=== PATIENT | male | born 1975 | race Caucasian/White ===

== ENCOUNTER 2017-06-25 16:56 | Inpatient (IN) | payer BC ==
--- NOTE | 2017-06-25 17:40 | HP ---
CIWA Score - CIWA Score Nausea/Vomitin Muscle Tremors: 3 Anxiety: 3 Agitation: 3 Paroxysmal Sweats: 3 Orientation: 0-Oriented Tacttile Disturbances: 2-Mild Itch/Numbness/Burn Auditory Disturbances: 2-Mild Harshness/Frighten Visual Disturbances: 2-Mild Sensitivity Headache: 2-Mild CIWA-Ar Total Score: 23 Admission ROS BHS - HPI Chief Complaint: i need help to stop drinking alcohol and drug heroin,cocaine and xanax Allergies/Adverse Reactions: Allergies Allergy/AdvReac Type Severity Reaction Status Date / Time No Known Allergies Allergy Verified 08/23/15 16:16 History of Present Illness: this 42 years old male with alcohol dependence,also using heroin,cocaine and xanax,seeking detox,last treatment [place] in 2014 seizure drug related last 10 years ago nicotine dependence mmtp 80 mgs/day,last medicated today longest period of sobriety 4 and half year Exam Limitations: No Limitations - Ebola screening Have you traveled outside of the country in the last 21 days: No Have you had contact with anyone from an Ebola affected area: No Do you have a fever: No - Review of Systems Constitutional: Diaphoresis, Loss of Appetite, Night Sweats, Changes in sleep, Unintentional Wgt. Loss EENT: reports: Tearing, Nose Congestion Respiratory: reports: No Symptoms reported Cardiac: reports: Palpitations GI: reports: Diarrhea, Nausea, Vomiting, Abdominal cramping : reports: No Symptoms Reported Musculoskeletal: reports: Back Pain, Joint Pain, Muscle Pain, Neck Pain Integumentary: reports: Dryness Neuro: reports: No Symptoms reported, Headache, Tremors Endocrine: reports: No Symptoms Reported Hematology: reports: No Symptoms Reported Psychiatric: reports: No Sypmtoms Reported, Judgement Intact, Mood/Affect Appropiate, Orientated x3 Other Systems: Reviewed and Negative Patient History - Patient Medical History Hx Anemia: No Hx Asthma: No Hx Chronic Obstructive Pulmonary Disease (COPD): No Hx Cancer: No Hx Cardiac Disorders: No Hx Congestive Heart Failure: No Hx Hypertension: No Hx Hypercholesterolemia: No Hx Pacemaker: No HX Cerebrovascular Accident: No Hx Seizures: Yes (last 2004) Hx Dementia: No Hx Diabetes: No Hx Gastrointestinal Disorders: No Hx Liver Disease: No Hx Genitourinary Disorders: No Hx Sexually Transmitted Disorders: No Hx Renal Disease (ESRD): No Hx Thyroid Disease: No Hx Human Immunodeficiency Virus (HIV): No (last 03/14 negative) Hx Hepatitis C: No Hx Depression: Yes (no med) Hx Suicide Attempt: No Hx Bipolar Disorder: No Hx Schizophrenia: No Other Medical History: no suicidal,no homicidal - Patient Surgical History Past Surgical History: No - PPD History Previous Implant?: Yes Documented Results: Negative w/o proof Date: 08/25/15 PPD to be Administered?: Yes - Smoking Cessation Smoking history: Current every day smoker Have you smoked in the past 12 months: Yes Aproximately how many cigarettes per day: 10 If you are a former smoker, when did you quit?: 10 Cigars Per Day: 0 Hx Chewing Tobacco Use: No Initiated information on smoking cessation: Yes 'Breaking Loose' booklet given: 06/25/17 - Substance & Tx. History Hx Alcohol Use: Yes Hx Substance Use: Yes Substance Use Type: Alcohol, Cocaine, Opiates, Tranquilizers Hx Substance Use Treatment: Yes ([facility] 2014) - Substances Abused Alcohol Route: Oral Frequency: Daily Amount used: 2pints of vodka and gin/2 of 6 packs of 12 ozs of beer Age of first use: 13 Date of Last Use: 06/25/17 Alprazolam (Xanax) Route: Oral Frequency: Daily Amount used: 4mgs Age of first use: 24 Date of Last Use: 06/24/17 Cocaine Route: Injection Frequency: Daily Amount used: 20$ Age of first use: 22 Date of Last Use: 06/25/17 Heroin Route: Injection Frequency: Daily Amount used: 6 bags Age of first use: 24 Date of Last Use: 06/25/17 Family Disease History - Family Disease History Family Disease History: Other: Mother (alcohol) Admission Physical Exam [facility] - Physical General Appearance: Yes: Moderate Distress, Tremorous, Irritable, Sweating, Anxious HEENTM: Yes: Normal ENT Inspection, QUITA, Pharynx Normal Respiratory: Yes: Lungs Clear, Normal Breath Sounds, No Respiratory Distress Neck: Yes: Within Normal Limits, Supple, Trachea in good position Breast: Yes: Within Normal Limits Cardiology: Yes: Within Normal Limits, Regular Rhythm, Regular Rate, S1, S2 Abdominal: Yes: Within Normal Limits, Normal Bowel Sounds, Non Tender, Soft Genitourinary: Yes: Within Normal Limits Back: Yes: Muscle Spasm Musculoskeletal: Yes: full range of Motion, Back pain, Muscle Pain Extremities: Yes: Within Normal Limits, Normal Range of Motion, Tremors 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: 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: 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, Alert, Motor Strength 5/5 Integumentary: Yes: Dry, Track Crocker, Other (cellulitis both forearms) Lymphatic: Yes: Within Normal Limits - Diagnostic (1) Alcohol dependence with uncomplicated intoxication Current Visit: No Status: Acute (2) Depression Current Visit: No Status: Acute (3) Nicotine dependence Current Visit: No Status: Chronic Qualifiers: Nicotine product type: cigarettes Substance use status: uncomplicated Qualified Code(s): F17.210 - Nicotine dependence, cigarettes, uncomplicated ; F17.210 - Nicotine dependence, cigarettes, uncomplicated (4) Seizure Current Visit: No Status: Chronic (5) Methadone maintenance therapy patient Current Visit: Yes Status: Acute (6) Weight loss Current Visit: Yes Status: Acute (7) Cellulitis Current Visit: Yes Status: Acute (8) Uncomplicated sedative, hypnotic or anxiolytic withdrawal Current Visit: Yes Status: Acute (9) Cocaine dependence Current Visit: Yes Status: Acute (10) Opioid dependence with withdrawal Current Visit: No Status: Acute Cleared for Admission BHS - Detox or Rehab S Level of Care: Medically Managed Detox Regimen/Protocol: Valium BHS Breath Alcohol Content Breath Alcohol Content: 0
[2017-06-25 18:16] VITALS: BMI 20.9
[2017-06-25] MEDS ORDERED: IBUPROFEN 400 MG TABLET (FP) PO PRN (18:17)
[2017-06-25] MEDS ORDERED: ACETAMINOPHEN 325 MG TABLET (FP) PO PRN (18:17)
[2017-06-25] MEDS ORDERED: MAGNESIUM CITRATE 300 ML BOTTLE PO PRN (18:17)
[2017-06-25] MEDS ORDERED: MAGNESIUM HYDROX 2400MG/30ML ORAL SUSPENSION 30 ML CUP PO PRN (18:17)
[2017-06-25] MEDS ORDERED: diphenhydrAMINE HCL 50 MG CAPSULE PO PRN (18:17)
[2017-06-25] MEDS ORDERED: MENTHOL/PHENOL 1 EACH UD MM PRN (18:17)
[2017-06-25] MEDS ORDERED: P-EPHED 60MG/TRIPROLIDI 2.5MG TABLET PO PRN (18:17)
[2017-06-25] MEDS ORDERED: diazePAM 5 MG TABLET PO ONE ×2 (18:17→21:15)
[2017-06-25] MEDS ORDERED: hydrOXYzine PAMOATE 25 MG CAPSULE (FP) PO PRN (18:17)
[2017-06-25] MEDS ORDERED: MAG HYDROX/AL HYDROX/SIMETH 30 ML UNIT-DOSE CUP PO PRN (18:17)
[2017-06-25] MEDS ORDERED: guaiFENesin/D-METHORPHAN HB 10 ML UNIT-DOSE CUPS PO PRN (18:17)
[2017-06-25] MEDS ORDERED: LOPERAMIDE HCL 2 MG CAPSULE PO PRN (18:17)
--- NOTE | 2017-06-25 18:23 | PN ---
[facility] Progress Note Note: addendum patient has bottle of methadone 80 mgs po for 06/26/17 with him
[2017-06-25] MEDS: NICOTINE 14 MG/24 HOURS TOPICAL PATCH TD SCH (21:33)
[2017-06-25] MEDS: THIAMINE HCL 100 MG TABLET (FP) PO SCH (23:03)
[2017-06-25] MEDS: CEPHALEXIN MONOHYDRATE 500 MG CAPSULE (UD) PO SCH (23:03)
[2017-06-25] MEDS: diazePAM 5 MG TABLET PO SCH (23:04)
[2017-06-26 01:02] LABS: URINE APPEARANCE SLCLOUDY; URINE BLOOD NEGATIVE (NEGATIVE); URINE COLOR AMBER; URINE GLUCOSE (UA) NEGATIVE (NEGATIVE); URINE KETONE TRACE (NEGATIVE); URINE NITRITE NEGATIVE (NEGATIVE); URINE PROTEIN NEGATIVE (NEGATIVE)
[2017-06-26] MEDS ORDERED: LEVOTHYROXINE NA 25 MCG TABLET (FP) ONE (05:29)
[2017-06-26] MEDS ORDERED: LEVOTHYROXINE NA 100 MCG TABLET (FP) ONE (05:30)
[2017-06-26] MEDS: diazePAM 5 MG TABLET PO SCH ×3 (05:52→22:05)
[2017-06-26] MEDS: CEPHALEXIN MONOHYDRATE 500 MG CAPSULE (UD) PO SCH ×4 (05:53→23:03)
[2017-06-26] MEDS ORDERED: METHADONE HCL 40 MG DISPERSABLE TABLET PO ONE (06:00)
[2017-06-26] MEDS ORDERED: LEVOTHYROXINE NA 125 MCG TABLET (FP) PO SCH (07:00)
[2017-06-26] MEDS: LEVOTHYROXINE 100 MCG, LEVOTHYROXINE 25 MCG PO SCH (07:43)
--- NOTE | 2017-06-26 09:10 | CONSULT ---
[facility] Psychiatric Consult - Data Date of interview: 06/26/17 Admission source: Self-referred due to court mandation Identifying data: Mr Sheffield is a 42 years old [place] male, unemployed , domiciled living with his ex girlfriend seeking detox treatment for alcohol, heroin, cocaine and xanax Substance Abuse History: Reports history of alcohol, heroin cocaine and xanax use. Refer to addiction counselor's note for further information Medical History: Significant for hypothyroidism, cellulitis both arm on antibiotics and alcohol-related seizure. Patient is on methadone 80 mg/day( att[facility]). Smokes 10 cigarettes daily Psychiatric History: Denies history of previous psychiatric treatment Physical/Sexual Abuse/Trauma History: Denies history of verbal, physical or sexual abuse as well as DV relationship Additional Comment: Reports history of multiple arrests including 3 felony convictions. No parole/probation but has an open court case Mental Status Exam - Mental Status Exam Alert and Oriented to: Time, Place, Person Cognitive Function: Fair Patient Appearance: Well Groomed Mood: Hopeful, Euthymic Patient Behavior: Cooperative Speech Pattern: Clear Voice Loudness: Normal Thought Process: Intact, Goal Oriented Thought Disorder: Not Present Hallucinations: Denies Suicidal Ideation: Denies Homicidal Ideation: Denies Insight/Judgement: Poor Sleep: Poorly Appetite: Good Muscle strength/Tone: Normal Gait/Station: Normal Psychiatric Findings - Problem List ([place] 1, 2,3) (1) Substance-induced sleep disorder Current Visit: Yes Status: Acute (2) Alcohol dependence with uncomplicated intoxication Current Visit: No Status: Acute (3) Opioid dependence with withdrawal Current Visit: No Status: Acute (4) Uncomplicated sedative, hypnotic or anxiolytic withdrawal Current Visit: Yes Status: Acute (5) Cocaine dependence Current Visit: Yes Status: Acute (6) Opioid dependence on agonist therapy Current Visit: Yes Status: Acute (7) Nicotine dependence Current Visit: No Status: Chronic Qualifiers: Nicotine product type: cigarettes Substance use status: uncomplicated Qualified Code(s): F17.210 - Nicotine dependence, cigarettes, uncomplicated ; F17.210 - Nicotine dependence, cigarettes, uncomplicated (8) Cellulitis Current Visit: Yes Status: Acute (9) Hypothyroidism Current Visit: Yes Status: Chronic Qualifiers: Hypothyroidism type: unspecified Qualified Code(s): E03.9 - Hypothyroidism, unspecified; E03.9 - Hypothyroidism, unspecified; E03.9 - Hypothyroidism, unspecified (10) Seizure Current Visit: No Status: Chronic - Initial Treatment Plan Initial Treatment Plan: 1) Start Ambien 10 mg po HS prn for insomnia. Benefits vs Risks of medication discussed with patient and he agreed to take it. 2) Continue inpatient detoxification
--- NOTE | 2017-06-26 09:10 | EKG ---
Test Reason : Blood Pressure : / mmHG Vent. Rate : 056 BPM Atrial Rate : 056 BPM P-R Int : 134 ms QRS Dur : 100 ms QT Int : 462 ms P-R-T Axes : 041 057 023 degrees QTc Int : 445 ms SINUS BRADYCARDIA NONSPECIFIC T WAVE ABNORMALITY ABNORMAL ECG NO PREVIOUS ECGS AVAILABLE Confirmed by SUPA OSWALD, KAYCEE ([id number]) on 06/26/2017 9:10:23 AM Referred By: Confirmed By:KAYCEE COWART MD
[2017-06-26] MEDS: diazePAM 5 MG TABLET PO PRN ×2 (10:16→17:39)
[2017-06-26] MEDS: PRENATAL VITAMINS W/ FOLIC ACID TABLET (FP) PO SCH (10:16)
[2017-06-26] MEDS: NICOTINE 14 MG/24 HOURS TOPICAL PATCH TD SCH (10:16)
[2017-06-26 15:23] LABS: URINE LEUK ESTERASE Negative (NEGATIVE)
--- NOTE | 2017-06-26 16:10 | PN ---
S CIWA - CIWA Score Nausea/Vomitin-Int. Nausea w/Dry Heave Muscle Tremors: 5 Anxiety: 4-Mod. Anxious/Guarded Agitation: 4-Moderately Restless Paroxysmal Sweats: 3 Orientation: 0-Oriented Tacttile Disturbances: 1-Very Mild Itch/Numbness Auditory Disturbances: 0-None Visual Disturbances: 0-None Headache: 3-Moderate CIWA-Ar Total Score: 24 BHS Progress Note (SOAP) Subjective: Headache, tremor, nausea, stomach ache, chills Objective: 06/26/17 16:08 Last Vital Signs Temp Pulse Resp BP Pulse Ox 97.5 F L 58 L 18 100/74 06/26/17 12:55 06/26/17 12:55 06/26/17 12:55 06/26/17 12:55 Laboratory Tests 06/26/17 00:54 Urine Color Marta Urine Appearance Slcloudy Urine pH 5.0 Ur Specific [place] >= 1.030 H Urine Protein Negative Urine Glucose (UA) Negative Urine Ketones Trace H Urine Blood Negative Urine Nitrite Negative Urine Bilirubin 2.0 Urine Urobilinogen 2.0 Ur Leukocyte Esterase Negative Admission labs ordered today was not done Assessment: 06/26/17 16:12 Withdrawal symptoms Plan: Continue detox Encouraged to drink lots of water Admission labs reordered in AM as it was not done
[2017-06-26] MEDS: ZOLPIDEM TARTRATE 5 MG TABLET PO PRN (22:05)
[2017-06-26] MEDS: THIAMINE HCL 100 MG TABLET (FP) PO SCH (22:05)
[2017-06-27] MEDS: diazePAM 5 MG TABLET PO PRN ×4 (01:04→17:30)
[2017-06-27] MEDS ORDERED: LEVOTHYROXINE NA 25 MCG TABLET (FP) ONE (04:35)
[2017-06-27] MEDS ORDERED: LEVOTHYROXINE NA 100 MCG TABLET (FP) ONE (04:35)
[2017-06-27] MEDS: CEPHALEXIN MONOHYDRATE 500 MG CAPSULE (UD) PO SCH ×4 (05:53→23:41)
[2017-06-27] MEDS: LEVOTHYROXINE 100 MCG, LEVOTHYROXINE 25 MCG PO SCH (06:53)
[2017-06-27 09:57] LABS: ALBUMIN 2.8 g/dl (3.4-5.0); ANION GAP 6 (8-16); CALCIUM 8.1 mg/dL (8.5-10.1); CO2 29 mmol/L (21-32); CREATININE 1.1 mg/dL (0.7-1.3); GLUCOSE,RANDOM 96 mg/dL (74-106); SGOT/AST 18 U/L (15-37); SGPT/ALT 25 U/L (12-78)
[2017-06-27 09:59] LABS: ALK PHOS 76 U/L (45-117); BILIRUBIN,TOTAL 0.2 mg/dL (0.2-1.0); TOT PROT 5.7 g/dl (6.4-8.2)
--- NOTE | 2017-06-27 10:08 | PN ---
[facility] CIWA - CIWA Score Nausea/Vomitin-No Nausea/No Vomiting Muscle Tremors: 4-Moderate,w/Arms Extend Anxiety: 4-Mod. Anxious/Guarded Agitation: 4-Moderately Restless Paroxysmal Sweats: 1-Minimal Palms Moist Orientation: 0-Oriented Tacttile Disturbances: 0-None Auditory Disturbances: 0-None Visual Disturbances: 0-None Headache: 0-None Present CIWA-Ar Total Score: 13 S Progress Note (SOAP) Subjective: ANXIETY,SWEATS,FATIGUE. Objective: 06/27/17 10:08 Vital Signs Temperature 96.2 F L 06/27/17 09:28 Pulse Rate 66 06/27/17 09:28 Respiratory Rate 17 06/27/17 09:28 Blood Pressure 129/83 06/27/17 09:28 O2 Sat by Pulse Oximetry (%) Laboratory Last Values Sodium 140 mmol/L (136-145) 06/27/17 06:45 Potassium 4.4 mmol/L (3.5-5.1) 06/27/17 06:45 Chloride 105 mmol/L (98-107) 06/27/17 06:45 Carbon Dioxide 29 mmol/L (21-32) 06/27/17 06:45 Anion Gap 6 (8-16) L 06/27/17 06:45 BUN 17 mg/dL (7-18) D 06/27/17 06:45 Creatinine 1.1 mg/dL (0.7-1.3) D 06/27/17 06:45 Creat Clearance w eGFR > 60 (>60) 06/27/17 06:45 Random Glucose 96 mg/dL (74-106) 06/27/17 06:45 Calcium 8.1 mg/dL (8.5-10.1) L 06/27/17 06:45 Total Bilirubin 0.2 mg/dL (0.2-1.0) D 06/27/17 06:45 AST 18 U/L (15-37) D 06/27/17 06:45 ALT 25 U/L (12-78) D 06/27/17 06:45 Alkaline Phosphatase 76 U/L (45-117) 06/27/17 06:45 Total Protein 5.7 g/dl (6.4-8.2) L 06/27/17 06:45 Albumin 2.8 g/dl (3.4-5.0) L 06/27/17 06:45 Urine Color Marta 06/26/17 00:54 Urine Appearance Slcloudy 06/26/17 00:54 Urine pH 5.0 (5.0-8.0) 06/26/17 00:54 Ur Specific [place] >= 1.030 (1.005-1.025) H 06/26/17 00:54 Urine Protein Negative (NEGATIVE) 06/26/17 00:54 Urine Glucose (UA) Negative (NEGATIVE) 06/26/17 00:54 Urine Ketones Trace (NEGATIVE) H 06/26/17 00:54 Urine Blood Negative (NEGATIVE) 06/26/17 00:54 Urine Nitrite Negative (NEGATIVE) 06/26/17 00:54 Urine Bilirubin 2.0 (NEGATIVE) 06/26/17 00:54 Urine Urobilinogen 2.0 mg/dL (0.2-1.0) 06/26/17 00:54 Ur Leukocyte Esterase Negative (NEGATIVE) 06/26/17 00:54 Assessment: 06/27/17 10:08 WITHDRAWAL SX Plan: CONTINUE DETOX
[2017-06-27] MEDS: PRENATAL VITAMINS W/ FOLIC ACID TABLET (FP) PO SCH (10:22)
[2017-06-27] MEDS: diazePAM 5 MG TABLET PO SCH ×2 (10:22→22:24)
[2017-06-27] MEDS: NICOTINE 14 MG/24 HOURS TOPICAL PATCH TD SCH (10:22)
[2017-06-27] MEDS: METHADONE HCL 40 MG DISPERSABLE TABLET PO SCH (10:23)
[2017-06-27 14:03] LABS: MCH 29.9 pg (25.7-33.7); MCHC 33.1 g/dl (32.0-35.9); MEAN CELL VOLUME 90.5 fl (80-96); MEAN PLT VOLUME 7.1 fl (7.5-11.1); PLATELET COUNT 288 K/MM3 (134-434); RDW 13.9 % (11.9-15.9); WHITE BLOOD COUNT 4.5 K/mm3 (4.0-10.0)
[2017-06-27] MEDS: THIAMINE HCL 100 MG TABLET (FP) PO SCH (22:23)
[2017-06-27] MEDS: ZOLPIDEM TARTRATE 5 MG TABLET PO PRN (22:24)
[2017-06-28] MEDS: diazePAM 5 MG TABLET PO PRN ×2 (02:39→17:03)
[2017-06-28] MEDS ORDERED: LEVOTHYROXINE NA 25 MCG TABLET (FP) ONE (05:02)
[2017-06-28] MEDS ORDERED: LEVOTHYROXINE NA 100 MCG TABLET (FP) ONE (05:03)
[2017-06-28] MEDS: CEPHALEXIN MONOHYDRATE 500 MG CAPSULE (UD) PO SCH ×4 (05:19→23:09)
[2017-06-28] MEDS: METHADONE HCL 40 MG DISPERSABLE TABLET PO SCH (05:19)
[2017-06-28] MEDS: LEVOTHYROXINE 100 MCG, LEVOTHYROXINE 25 MCG PO SCH (06:27)
[2017-06-28] MEDS: PRENATAL VITAMINS W/ FOLIC ACID TABLET (FP) PO SCH (10:14)
[2017-06-28] MEDS: NICOTINE 14 MG/24 HOURS TOPICAL PATCH TD SCH (10:14)
[2017-06-28] MEDS: diazePAM 5 MG TABLET PO SCH ×2 (10:14→22:09)
--- NOTE | 2017-06-28 11:57 | PN ---
[facility] Progress Note (SOAP) Subjective: DECREASED ANXIETY,TREMORS,SWEATS. MEDS EFFECTIVE. Objective: 06/28/17 11:56 Vital Signs Temperature 98.1 F 06/28/17 09:16 Pulse Rate 73 06/28/17 09:16 Respiratory Rate 18 06/28/17 09:16 Blood Pressure 137/71 06/28/17 09:16 O2 Sat by Pulse Oximetry (%) Laboratory Last Values WBC 4.5 K/mm3 (4.0-10.0) 06/27/17 06:45 RBC 4.30 M/mm3 (4.00-5.60) 06/27/17 06:45 Hgb 12.9 GM/dL (11.7-16.9) 06/27/17 06:45 Hct 38.9 % (35.4-49) 06/27/17 06:45 MCV 90.5 fl (80-96) 06/27/17 06:45 MCH 29.9 pg (25.7-33.7) 06/27/17 06:45 MCHC 33.1 g/dl (32.0-35.9) 06/27/17 06:45 RDW 13.9 % (11.9-15.9) 06/27/17 06:45 Plt Count 288 K/MM3 (134-434) D 06/27/17 06:45 MPV 7.1 fl (7.5-11.1) L 06/27/17 06:45 Sodium 140 mmol/L (136-145) 06/27/17 06:45 Potassium 4.4 mmol/L (3.5-5.1) 06/27/17 06:45 Chloride 105 mmol/L (98-107) 06/27/17 06:45 Carbon Dioxide 29 mmol/L (21-32) 06/27/17 06:45 Anion Gap 6 (8-16) L 06/27/17 06:45 BUN 17 mg/dL (7-18) D 06/27/17 06:45 Creatinine 1.1 mg/dL (0.7-1.3) D 06/27/17 06:45 Creat Clearance w eGFR > 60 (>60) 06/27/17 06:45 Random Glucose 96 mg/dL (74-106) 06/27/17 06:45 Calcium 8.1 mg/dL (8.5-10.1) L 06/27/17 06:45 Total Bilirubin 0.2 mg/dL (0.2-1.0) D 06/27/17 06:45 AST 18 U/L (15-37) D 06/27/17 06:45 ALT 25 U/L (12-78) D 06/27/17 06:45 Alkaline Phosphatase 76 U/L (45-117) 06/27/17 06:45 Total Protein 5.7 g/dl (6.4-8.2) L 06/27/17 06:45 Albumin 2.8 g/dl (3.4-5.0) L 06/27/17 06:45 Urine Color Marta 06/26/17 00:54 Urine Appearance Slcloudy 06/26/17 00:54 Urine pH 5.0 (5.0-8.0) 06/26/17 00:54 Ur Specific [place] >= 1.030 (1.005-1.025) H 06/26/17 00:54 Urine Protein Negative (NEGATIVE) 06/26/17 00:54 Urine Glucose (UA) Negative (NEGATIVE) 06/26/17 00:54 Urine Ketones Trace (NEGATIVE) H 06/26/17 00:54 Urine Blood Negative (NEGATIVE) 06/26/17 00:54 Urine Nitrite Negative (NEGATIVE) 06/26/17 00:54 Urine Bilirubin 2.0 (NEGATIVE) 06/26/17 00:54 Urine Urobilinogen 2.0 mg/dL (0.2-1.0) 06/26/17 00:54 Ur Leukocyte Esterase Negative (NEGATIVE) 06/26/17 00:54 RPR Titer Nonreactive (NONREACTIVE) 06/27/17 06:45 Assessment: 06/28/17 11:56 WITHDRAWAL SX Plan: CONTINUE DETOX
[2017-06-28] MEDS: THIAMINE HCL 100 MG TABLET (FP) PO SCH (22:08)
[2017-06-29] MEDS: CEPHALEXIN MONOHYDRATE 500 MG CAPSULE (UD) PO SCH (05:47)
[2017-06-29] MEDS: METHADONE HCL 40 MG DISPERSABLE TABLET PO SCH (05:47)
[2017-06-29 06:07] VITALS: BP 103/65; PULSE 66; TEMP 97.9
[2017-06-29] MEDS ORDERED: LEVOTHYROXINE NA 25 MCG TABLET (FP) ONE (06:21)
[2017-06-29] MEDS ORDERED: LEVOTHYROXINE NA 100 MCG TABLET (FP) ONE (06:21)
[2017-06-29] MEDS: LEVOTHYROXINE 100 MCG, LEVOTHYROXINE 25 MCG PO SCH (07:27)
--- NOTE | 2017-06-29 09:38 | DS ---
[facility] Detox Discharge Summary Admission Date: 06/25/17 Discharge Date: 06/29/17 - History Present History: Alcohol Dependence, Cocaine Dependence, Opioid Dependence, Sedative Dependence, MMTP Additional Comments: DETOX COMPLETED.ALERT O X 3. NAD. PT REMINDED TO FOLLOW UP AT [facility] FOR MEDICAL MANAGEMENT OF COMORBID CONDITIONS. REPORTS HE IS IN PROCESS OF CHANGING PCP. Pertinent Past History: CELLULITIS/ABSCESS HYPOTHYROIDISM HX SEIZURES - Physical Exam Results Vital Signs: Vital Signs Temperature 97.9 F 06/29/17 06:07 Pulse Rate 66 06/29/17 06:07 Respiratory Rate 18 06/29/17 06:07 Blood Pressure 103/65 06/29/17 06:07 O2 Sat by Pulse Oximetry (%) Pertinent Admission Physical Exam Findings: WITHDRAWAL SX Laboratory Last Values WBC 4.5 K/mm3 (4.0-10.0) 06/27/17 06:45 RBC 4.30 M/mm3 (4.00-5.60) 06/27/17 06:45 Hgb 12.9 GM/dL (11.7-16.9) 06/27/17 06:45 Hct 38.9 % (35.4-49) 06/27/17 06:45 MCV 90.5 fl (80-96) 06/27/17 06:45 MCH 29.9 pg (25.7-33.7) 06/27/17 06:45 MCHC 33.1 g/dl (32.0-35.9) 06/27/17 06:45 RDW 13.9 % (11.9-15.9) 06/27/17 06:45 Plt Count 288 K/MM3 (134-434) D 06/27/17 06:45 MPV 7.1 fl (7.5-11.1) L 06/27/17 06:45 Sodium 140 mmol/L (136-145) 06/27/17 06:45 Potassium 4.4 mmol/L (3.5-5.1) 06/27/17 06:45 Chloride 105 mmol/L (98-107) 06/27/17 06:45 Carbon Dioxide 29 mmol/L (21-32) 06/27/17 06:45 Anion Gap 6 (8-16) L 06/27/17 06:45 BUN 17 mg/dL (7-18) D 06/27/17 06:45 Creatinine 1.1 mg/dL (0.7-1.3) D 06/27/17 06:45 Creat Clearance w eGFR > 60 (>60) 06/27/17 06:45 Random Glucose 96 mg/dL (74-106) 06/27/17 06:45 Calcium 8.1 mg/dL (8.5-10.1) L 06/27/17 06:45 Total Bilirubin 0.2 mg/dL (0.2-1.0) D 06/27/17 06:45 AST 18 U/L (15-37) D 06/27/17 06:45 ALT 25 U/L (12-78) D 06/27/17 06:45 Alkaline Phosphatase 76 U/L (45-117) 06/27/17 06:45 Total Protein 5.7 g/dl (6.4-8.2) L 06/27/17 06:45 Albumin 2.8 g/dl (3.4-5.0) L 06/27/17 06:45 Urine Color Marta 06/26/17 00:54 Urine Appearance Slcloudy 06/26/17 00:54 Urine pH 5.0 (5.0-8.0) 06/26/17 00:54 Ur Specific [place] >= 1.030 (1.005-1.025) H 06/26/17 00:54 Urine Protein Negative (NEGATIVE) 06/26/17 00:54 Urine Glucose (UA) Negative (NEGATIVE) 06/26/17 00:54 Urine Ketones Trace (NEGATIVE) H 06/26/17 00:54 Urine Blood Negative (NEGATIVE) 06/26/17 00:54 Urine Nitrite Negative (NEGATIVE) 06/26/17 00:54 Urine Bilirubin 2.0 (NEGATIVE) 06/26/17 00:54 Urine Urobilinogen 2.0 mg/dL (0.2-1.0) 06/26/17 00:54 Ur Leukocyte Esterase Negative (NEGATIVE) 06/26/17 00:54 RPR Titer Nonreactive (NONREACTIVE) 06/27/17 06:45 - Treatment Hospital Course: Detox Protocol Followed, Detoxed Safely, Responded well, Discharged Condition Good - Medication Discharge Medications: Ambulatory Orders Cephalexin Monohydrate [Keflex -] 500 mg PO Q6HPO #20 mg 06/29/17 Levothyroxine [Synthroid -] 125 mcg PO DAILY #30 mcg 06/29/17 - Diagnosis (1) Weight loss Status: Acute (2) Hypothyroidism Status: Chronic Qualifiers: Hypothyroidism type: unspecified Qualified Code(s): E03.9 - Hypothyroidism, unspecified; E03.9 - Hypothyroidism, unspecified; E03.9 - Hypothyroidism, unspecified (3) Nicotine dependence Status: Acute Qualifiers: Nicotine product type: cigarettes Substance use status: in withdrawal Qualified Code(s): F17.213 - Nicotine dependence, cigarettes, with withdrawal; F17.213 - Nicotine dependence, cigarettes, with withdrawal (4) Seizure Status: Suspected (5) Cocaine dependence Status: Acute (6) Methadone maintenance therapy patient Status: Chronic (7) Uncomplicated sedative, hypnotic or anxiolytic withdrawal Status: Acute (8) Cellulitis of right hand Status: Acute - AMA Did Patient Leave Against Medical Advice: No
[2017-06-29] MEDS ORDERED: diazePAM 5 MG TABLET PO SCH (10:00)
== END 2017-06-29 09:02 | disposition home or self-care (01) | DRG 773 ==
LOC: YASAS 16:56 → Y3N 17:48
PROVIDERS: ADMIT Internal Medicine; ATTEND Internal Medicine
PROC: HZ2ZZZZ Detoxification Services for Substance Abuse Treatment (ICD-10-PCS; principal; 2017-06-25)
DX: F11.20 Opioid dependence, uncomplicated (principal); F13.230 Sedative, hypnotic or anxiolytic dependence with withdrawal, uncomplicated; F10.230 Alcohol dependence with withdrawal, uncomplicated; F14.20 Cocaine dependence, uncomplicated; F17.210 Nicotine dependence, cigarettes, uncomplicated; F19.282 Other psychoactive substance dependence with psychoactive substance-induced sleep disorder; F32.9 Major depressive disorder, single episode, unspecified; E06.9 Thyroiditis, unspecified; L03.114 Cellulitis of left upper limb; L03.113 Cellulitis of right upper limb; Z86.69 Personal history of other diseases of the nervous system and sense organs; R63.4 Abnormal weight loss; Z68.21 Body mass index [BMI] 21.0-21.9, adult
CPT/HCPCS: 36415; 80053; 81003; 85027; 86593; 93005; 93010